=== PATIENT | male | born 1955 | race Caucasian/White ===

== ENCOUNTER 2021-12-24 17:24 | Emergency (ER) | payer BC ==
[~2021-12-24] VITALS: Ht 188 cm; Wt 90.7 kg
[~2021-12-24 17:24] MED LIST: NS 1000ML 1,000 ML STA; PROTONIX IV 80 MG in NS 100ML 100 ML IV STA; ROCEPHIN 1,000 MG in NS 100ML 100 ML IV STA
--- NOTE | 2021-12-24 17:24 | NUR ---
ARRIVAL PT ARRIVED VIA EMS TO ED 3 WITH C/O VOMITING BLOOD. PT HAD VARICES CLAMPED A MONTH AGO. EMS INITIATED 2 IVS. PT AMBULATED FROM [facility] TO BED. VITALS MONITORED AND DR IN ROOM.
[2021-12-24] MEDS ORDERED: NS 1000ML 1,000 ML ONE (17:33)
[2021-12-24] MEDS ORDERED: PROTONIX IV IV ONE (17:33)
[2021-12-24 17:42] VITALS: BP 115/55
[2021-12-24 17:52] LABS: BASOPHIL % 0.3 % (0.0-0.2); EOSINOPHIL # 0.1 10^3/uL (0.0-0.2); EOSINOPHIL % 3.4 % (0.0-5.0); LYMPHOCYTES # 0.59 10^3/uL1 (1.0-4.8); LYMPHOCYTES % 18.3 % (24.0-44.0); MEAN CORP HGB 39.4 pg (26-34); MONOCYTES # 0.3 10^3/uL (0.3-0.8); MONOCYTES % 9.6 % (5.0-12.0); NEUTROPHIL # 2.2 10^3/uL (1.8-7.7); NEUTROPHILS % 68.4 % (41.0-85.0); PLATELET COUNT 88 10^3/uL (150-400); RED CELL DISTRIBUTION WIDTH 20.7 % (11.5-14.5)
[2021-12-24] MEDS ORDERED: NS 100ML 100 ML IV ONE (17:59)
[2021-12-24] MEDS ORDERED: ROCEPHIN ONE (18:00)
--- NOTE | 2021-12-24 18:09 | NUR ---
CRITICAL LAB NOTIFIED JAMESON OF [facility] 6.1
[2021-12-24 18:10] LABS: CARBON DIOXIDE 24.1 mmol/L (20.0-32)
--- NOTE | 2021-12-24 18:37 | NUR ---
[facility] EDP ON PHONE WITH [facility] ABOUT POSSIBLE TRANSFER
--- NOTE | 2021-12-24 18:39 | NUR ---
[facility] ER DR BELL ACCEPTING. ANAND WALSH RN AOD
--- NOTE | 2021-12-24 18:39 | NUR ---
[facility] INITIAL CONTACT 183 AOKrysten WALSH RN. ACCEPTING PHYSICIAN DR. FRIAS @ [address] [facility] ER. REPORT CALLED TO [phone]. FACESHEET FAXED TO [phone].
[2021-12-24 18:48] VITALS: BP 124/43
[2021-12-24 18:48] LABS: BILIRUBIN,URINE NEGATIVE (NEGATIVE); UROBILINOGEN,URINE 0.2 E.U./dL (0.2)
--- NOTE | 2021-12-24 18:52 | ER.PDOC ---
General Chief Complaint: Nausea,Vomiting,Diarrhea Stated Complaint: VOMITING BLOOD Time seen by MD: 17:25 Source: patient, EMS Exam Limitations: no limitations History of Present Illness Initial Comments Patient is a 66-year-old male with a past medical history of cirrhosis and recent esophageal variceal banding about a month ago at [facility] who comes in via EMS for vomiting up bright red blood. EMS states the patient's vital signs have been mostly within normal limits in route they have given him some fluids in route as well. Patient states that about a month ago he had esophageal varices banded secondary to his cirrhosis. Patient states that earlier today about 30 mins prior to EMS arrival he vomited up and may be a coffee cans worth of bright red blood. Patient states that he feels weak has an associated symptom. Patient states that he does not know what makes his symptoms better or worse. Patient denies any abdominal pain. Patient states that his stool has also been bloody as well darker red he states. Patient denies any other symptoms at this time Allergies: Coded Allergies: Penicillins (Verified Allergy, Unknown, ., 12/24/21) Vital Signs First Vital Signs Date Time Temp Pulse Resp B/P (MAP) Pulse Ox O2 Delivery O2 Flow Rate FiO2 12/24/21 17:42 98.3 55 18 115/55 (75) 95 Room Air* 0 21 Last Vital Signs Date Time Temp Pulse Resp B/P (MAP) Pulse Ox O2 Delivery O2 Flow Rate FiO2 12/24/21 18:48 52 18 124/43 (70) 98 Room Air* 0 21 12/24/21 17:42 98.3 Past Medical History Medical History: hypertension Surgical History: knee Family History Significant Family History: no pertinent family hx Social History Smoking: non-smoker Alcohol Use: none Drug Use: none Reviewed Nursing Reviewed: Vital Signs, Abn. Noted, Nursing Assessment Constitutional: malaise, weakness EENTM: denies no symptoms reported, denies see HPI, denies eye pain, denies blurred vision, denies tearing, denies double vision, denies ear pain, denies ear discharge, denies nose pain, denies nose congestion, denies throat pain, denies throat swelling, denies mouth pain, denies mouth swelling, denies other Respiratory: denies no symptoms reported, denies see HPI, denies cough, denies orthopnea, denies shortness of breath, denies SOB with exertion, denies SOB at rest, denies stridor, denies wheezing, denies other Cardiovascular: denies no symptoms reported, denies see HPI, denies chest pain, denies edema, denies irregular heart rate, denies lightheadedness, denies palpitations, denies syncope, denies other Gastrointestinal: denies abdomen distended, denies abdominal pain; blood streaked bowels, vomiting Genitourinary: denies no symptoms reported, denies see HPI, denies burning, denies dysuria, denies discharge, denies frequency, denies flank pain, denies hematuria, denies incontinence, denies pain, denies urgency, denies other Musculoskeletal: denies no symptoms reported, denies see HPI, denies back pain, denies gout, denies joint pain, denies joint swelling, denies muscle pain, denies muscle stiffness, denies neck pain, denies other Skin: denies no symptoms reported, denies see HPI, denies change in color, denies change in hair/nails, denies dryness, denies lesions, denies lumps, denies rash, denies other Psychiatric/Neurological: denies no symptoms reported, denies see HPI, denies anxiety, denies depressed, denies emotional problems, denies headache, denies numbness, denies paresthesia, denies pre-existing deficit, denies seizure, denies tingling, denies tremors, denies weakness, denies other Endocrine: denies no symptoms reported, denies see HPI, denies excessive sweating, denies flushing, denies intolerance to cold, denies intolerance to heat, denies increased hunger, denies increased thrist, denies increased urine, denies unexplained weight gain, denies unexplaned weight loss, denies other Hematologic/Lymphatic: denies no symptoms reported, denies see HPI, denies anemia, denies blood clots, denies easy bleeding, denies easy bruising, denies swollen glands, denies other Physical Exam General Appearance: No Apparent Distress HEENT: PERRL/EOMI (Conjunctival pallor), Normal ENT Inspection, TMs Normal, Pharynx Normal Neck: Non-Tender, Full Range of Motion, Supple, Normal Inspection Respiratory: chest non-tender, lungs clear, normal breath sounds, no respiratory distress, no accessory muscle use Cardiovascular: Normal Peripheral Pulses, Regular Rate, Rhythm, No Edema, No Gallop, No JVD, No Murmur Gastrointestinal: Normal Bowel Sounds, Non Tender, Soft Back: Normal Inspection, No CVA Tenderness, No Vertebral Tenderness Extremities: Normal Range of Motion, Non-Tender, Normal Inspection, No Pedal Edema, No Calf Tenderness, Normal Capillary Refill, Pelvis Stable Neurologic/Psychiatric: ecological technical officer II-XII NML as Tested, No Motor/Sensory Deficits, Alert, Normal Mood/Affect, Oriented x 3 Skin: Warm/Dry, Pallor Lymphatic: No Adenopathy Results/Orders Results/Orders Orders - NIGHAT BARBA MD Cbc With Auto Diff (12/24/21 17:24) Comprehensive Metabolic Panel (12/24/21:24) Lipase (12/24/21:24) PT (12/24/21:24) Partial Thromboplastin Time. (12/24/21 17:24) Urinalysis (12/24/21 17:24) Type And Screen (12/24/21 17:24) Saline Lock (12/24/21 17:24) Pantoprazole Sodium (Protonix Iv) (12/24/21 17:24) Ceftriaxone Sodium (Rocephin) (12/24/21 17:24) 0.9 % Sodium Chloride (Ns 1000ml) (12/24/21 17:24) 0.9 % Sodium Chloride (Ns 1000ml) (12/24/21 17:33) Pantoprazole Sodium (Protonix Iv) (12/24/21 17:33) 0.9 % Sodium Chloride (Ns 100ml) (12/24/21 17:59) Ceftriaxone Sodium (Rocephin) (12/24/21 18:00) Rbc-Active Bleeding (12/24/21 18:16) Start Transfusion (12/24/21 18:16) Obtain Consent For Transfusion (12/24/21 18:16) Vital Signs Date Time Temp Pulse Resp B/P (MAP) Pulse Ox O2 Delivery O2 Flow Rate FiO2 12/24/21 18:48 52 18 124/43 (70) 98 Room Air* 0 21 12/24/21 17:42 98.3 55 18 12/24/21 17:42 98.3 55 18 95 12/24/21 17:42 98.3 55 18 115/55 (75) 95 Room Air* 0 21 Administered Medications Medications (Trade) Dose Ordered Sig/Kashif Route PRN Reason Start Time Stop Time Status Last Admin Dose Admin Ceftriaxone Sodium 1000 mg/ Sodium Chloride 100 ml @ 100 mls/hr OT STAT IV 12/24/21 17:24 12/24/21 18:23 DC 12/24/21 18:05 100 MLS/HR Pantoprazole Sodium 80 mg/ Sodium Chloride 100 ml @ 10 mls/hr OT STAT IV 12/24/21 17:24 12/25/21 03:23 12/24/21 17:40 10 MLS/HR Sodium Chloride 1,000 ml @ 0 mls/hr Q0M STAT IV 12/24/21 17:24 12/24/21 17:27 DC 12/24/21 17:40 1,200 MLS/HR Laboratory Tests Test 12/24/21 17:45 12/24/21 18:31 White Blood Count 3.2 10^3/uL (4.5-11.0) L Red Blood Count 1.55 10^6/uL (4.50-5.90) L Hemoglobin 6.1 g/dL (13.9-16.3) *L Hematocrit 18.7 % (37.0-53.0) L Mean Corpuscular Volume 120.6 fL (78-100) H Mean Corpuscular Hemoglobin 39.4 pg (26-34) H Mean Corpuscular Hemoglobin Concent 32.6 g/dL (33-36.5) L Red Cell Distribution Width 20.7 % (11.5-14.5) H Platelet Count 88 10^3/uL (150-400) L Mean Platelet Volume 11.1 fL (7.8-11.0) H Neutrophils (%) (Auto) 68.4 % (41.0-85.0) Lymphocytes (%) (Auto) 18.3 % (24.0-44.0) L Monocytes (%) (Auto) 9.6 % (5.0-12.0) Neutrophils # (Auto) 2.2 10^3/uL (1.8-7.7) Lymphocytes # (Auto) 0.59 10^3/uL1 (1.0-4.8) L Monocytes # (Auto) 0.3 10^3/uL (0.3-0.8) Absolute Immature Granulocyte (auto 0 10^3 u/L (0-2) Absolute Eosinophils (auto) 0.1 10^3/uL (0.0-0.2) Immature Granulocytes % 0.00 % (0.00-0.50) Eosinophils % 3.4 % (0.0-5.0) Basophils % 0.3 % (0.0-0.2) H Basophils # 0.0 10^3/uL (0.0-0.1) Prothrombin Time 20.1 SEC (9.1-11.5) H Prothrombin Time INR (Non-Therap) 2.0 Activated Partial Thromboplast Time 40.4 SEC (22.5-33.1) H Sodium Level 141 mmol/L (132-145) Potassium Level 3.9 mmol/L (3.6-5.2) Chloride Level 111.0 mmol/L (96-109) H Carbon Dioxide Level 24.1 mmol/L (20.0-32) Anion Gap 9.8 Blood Urea Nitrogen 14 mg/dL (7-18) Creatinine 0.98 mg/dL (0.59-1.40) Estimated GFR () 92.6 (>/=60) Est GFR (CKD-EPI)(Non-Afr [place]an) 76.5 (>/=60) BUN/Creatinine Ratio 14.0 Glucose Level 104 mg/dL (70-110) Calcium Level 7.1 mg/dL (8.4-10.5) L Total Bilirubin 1.3 mg/dL (0.2-1.0) H Aspartate Amino Transferase (AST) 20 U/L (0-35) Alanine Aminotransferase (ALT) 18 U/L (12-78) Alkaline Phosphatase 64 U/L (50-136) Total Protein 4.6 g/dL (6.4-8.2) L Albumin 2.1 g/dL (3.4-5.0) L Globulin 2.5 Albumin/Globulin Ratio 0.840 Lipase 28 U/L (114-286) L Urine Collection Type RANDOM Urine Color YELLOW Urine Appearance Urine Bilirubin NEGATIVE (NEGATIVE) Urine Ketones TRACE (NEGATIVE) H Urine Specific [place] 1.020 (1.005-1.030) Urine pH 7.0 (4.5-8.0) Urine Protein TRACE (NEGATIVE) Urine Urobilinogen 0.2 E.U./dL (0.2) Urine Nitrate NEGATIVE (NEGATIVE) Urine Leukocyte Esterase NEGATIVE (NEGATIVE) Urine Glucose (Auto)(UA) NEGATIVE (NEGATIVE) Urine Blood NEGATIVE (NEGATIVE) Blood Bank Test 12/24/21 17:45 Blood Product Summary Counts Blood Type B POSITIVE Progress Progress Patient here with upper GI bleed and known cirrhosis and esophageal varices. We will start the work-up prepped patient for probable transfer to [facility] for GI needs. Patient otherwise hemodynamically stable at this time however we will keep a close eye on him as has a high chance of decompensating quickly. [id number] is doing well blood is ordered and is currently being was able to discuss patient with [facility] who auto accepted ER to ER under Dr. Adkins -We will continue to monitor patient closely. 1919 - ReassessmentEMS is here to transport patient is hemodynamically stable at this time. ER DEPART Departure Time of Disposition: 19:21 Disposition: ADMITTED INPATIENT (At [facility]) Impression: Primary Impression: Upper GI bleed Additional Impressions: Anemia History of cirrhosis of liver Condition: Improved Referrals: WHITNEY ROSENBERG MD (PCP) PRIMARY CARE PROVIDER Duration or Time Spent with Pa: 120 Critical Care Note Total Time (mins): 45 Comments Patient here with upper GI bleed and known esophageal varices had high potential to quickly decompensate is also on medications that would block his heart rate from increasing in the setting of shock thus must keep a close eye this is separate from any other billable procedures. Problem Qualifiers Additional Impressions: Anemia Anemia type: unspecified type Qualified Codes: D64.9 - Anemia, unspecified NIGHAT BARBA MD Dec 24, 2021 18:52
--- NOTE | 2021-12-24 19:30 | NUR ---
REPORT PHONED REPORT TO [facility] ER TO JULIO BRIGHT. TRANSPORTED VIA [facility] GROUND. ALERT AND ORIENTED X3. AT BEDSIDE UPON DISCHARGE.
== END 2021-12-24 19:30 | disposition admitted as inpatient to this hospital (09) ==
LOC: EDBD 17:24 → ER 17:24
DX: K92.2 Gastrointestinal hemorrhage, unspecified (principal); D64.9 Anemia, unspecified; K74.60 Unspecified cirrhosis of liver; I10 Essential (primary) hypertension; Z88.0 Allergy status to penicillin; Z98.890 Other specified postprocedural states
CPT/HCPCS: 99291; 96365; 96368; 87086; 80053; 85025; 36415; 81001; 83690; 85610; 85730; 86900 ×3; 86901; 86885; 86923; J7030; J0696 ×2; C9113 ×2; 96361